=== PATIENT | male | born 1955 | race African-American/Black ===

== ENCOUNTER 2021-12-04 08:45 | Outpatient (CLI) | payer MEDICARE | END 2021-12-04 08:46 | disposition home or self-care (01) | LOC: CSHULT 08:45 | PROVIDERS: ATTEND Physician Assistant Medical | DX: B18.2 Chronic viral hepatitis C (principal); Z86.010 Personal history of colon polyps | CPT/HCPCS: 76705 ==

== ENCOUNTER 2022-06-23 23:46 | Emergency (ER) | payer OTHER ==
[2022-06-24] MEDS ORDERED: Ketorolac Tromethamine 30 MG/ML VIAL ONE (00:11)
[2022-06-24] MEDS ORDERED: Morphine 4 MG/ML VIAL ONE (00:11)
[2022-06-24 00:23] LABS: #Eosinphils 0.2 10x3/uL (0.0-0.5); #Monocytes 0.2 10x3/uL (0.0-1.1); #Neutrophils 1.5 10x3/uL (1.5-8.4); %Basophils 0.6 % (0.0-2.0); %Eosinophils 6.1 % (0.0-6.0); %Monocytes 6.1 % (0.0-10.0); %Neutrophils 41.2 % (40.0-75.0); Hemoglobin 12.7 g/dL (13.5-17.5); Mean Corpuscular HGB CONC 32.3 g/dL (32.0-36.0); Mean Corpuscular Hemoglobin 28.7 pg (27.0-33.0); Mean Corpuscular Volume 88.7 fl (81.2-95.1); Mean Platelet Volume 9.9 fl (7.4-10.4); Platelet Count 229 10x3/uL (150-450); RBC Distribution Width 13.9 % (11.5-14.5); Red Blood Cell (RBC) Count 4.43 10x6/uL (4.32-5.72); White Blood Cell (WBC) Count 3.6 10x3/uL (3.5-10.5)
[2022-06-24 00:39] LABS: ALT (SGPT) 6 U/L (8-55); AST (SGOT) 13 U/L (5-34); Alkaline Phosphatase 56 U/L (40-110); Anion Gap 10 mmol/L (10-20); BUN (Urea Nitrogen) 27 mg/dL (8.4-25.7); Bilirubin, Total 0.3 mg/dL (0.2-1.2); Calc. Creatinine Clearance 0 mL/min (70-130); Calcium 8.9 mg/dL (7.8-10.44); Carbon Dioxide 28 mmol/L (23-31); Chloride 104 mmol/L (98-107); Estimated GFR 62; Globulin 2.9 g/dL (2.4-3.5); Glucose 93 mg/dL (80-115); Potassium 4.2 mmol/L (3.5-5.1); Protein, Total 6.9 g/dL (5.8-8.1); Sodium 138 mmol/L (136-145)
[2022-06-24] MEDS ORDERED: Iopamidol 300 61% 100 ML VIAL FS ONE (08:50)
== END 2022-06-24 03:15 | disposition home or self-care (01) ==
LOC: CSHERS 23:46
DX: S20.219A Contusion of unspecified front wall of thorax, initial encounter (principal); V47.0XXA Car driver injured in collision with fixed or stationary object in nontraffic accident, initial encounter; Y92.410 Unspecified street and highway as the place of occurrence of the external cause
CPT/HCPCS: 36415; 71045; 71260; 72125; 80053; 84484; 85025; 93005; 96374; 96375; G0390; J1885; J2270; Q9967

== ENCOUNTER 2023-10-12 13:11 | Outpatient (CLI) | payer OTHER, MEDICAID ==
[~2023-10-12 13:11] MED LIST: Magnevist 469MG/ML 20 ML VIAL ONE
== END 2023-10-12 13:12 | disposition home or self-care (01) ==
LOC: CSHMRI 13:11
PROVIDERS: ATTEND Urology
DX: C61 Malignant neoplasm of prostate (principal)
CPT/HCPCS: 72197